=== PATIENT | female | born 1940 | race Caucasian/White ===

== ENCOUNTER → 2017-12-24 | Outpatient (CLI) | payer OTHER, MEDICARE ==
[~2017-12-24] MED LIST: ASPIRIN EC81 M1 PO; AUGMENTIN 500-1 EACH; AUGMENTIN 500-1 EACH PO; CIPROFLOXACIN500 M1 PO; HYDROCODON-ACE1 EAC7 PO; K-DUR 20 MEQ T20 MEQ; KURVELO1 EACH; LEVOTHYROXIN0.112 M1 PO; PRILOSEC 20 MG20 MG PO; PROTONIX IV40 MG; PROTONIX40 M2 PO; PYRIDIUM200 MG PO; SYNTHROID112 MCG PO; VITAMIN D32000 UNI1 PO; ZOLOFT 50 MG TA50 M1 PO; ZOLOFT25 MG PO
== END ==
LOC: RAD 10:48
DX: Z12.31 Encounter for screening mammogram for malignant neoplasm of breast (principal)

== ENCOUNTER → 2017-12-28 | Outpatient (CLI) | payer OTHER, MEDICARE | LOC: ULTRA 07:26 | DX: N63.20 Unspecified lump in the left breast, unspecified quadrant (principal); N60.02 Solitary cyst of left breast ==

== ENCOUNTER → 2018-08-13 | Outpatient (CLI) | payer OTHER, MEDICARE | LOC: ULTRA 02:06 | DX: N60.02 Solitary cyst of left breast (principal); R92.8 Other abnormal and inconclusive findings on diagnostic imaging of breast ==

== ENCOUNTER → 2019-02-05 | Outpatient (CLI) | payer OTHER, MEDICARE | LOC: ULTRA 02:39 | DX: N60.02 Solitary cyst of left breast (principal) ==

== ENCOUNTER → 2020-04-06 | Outpatient (CLI) | payer OTHER, MEDICARE | LOC: RAD 10:13 | PROVIDERS: ATTEND Internal Medicine | DX: Z12.31 Encounter for screening mammogram for malignant neoplasm of breast (principal) ==

== ENCOUNTER → 2021-01-31 | Outpatient (CLI) | payer OTHER, MEDICARE ==
[~2021-01-31] MED LIST changes: +LEVOTHYROXINE100 MC2 PO; +LIPITOR10 MG PO; +METOPROLOL TART25 MG PO; +NORVASC10 MG PO; +PACERONE200 MG PO; +TYLENOL EXTRA500 MG PO; -VITAMIN D32000 UNI1 PO; +VITAMIN D350 MCG PO; +XARELTO20 MG PO; +ZESTRIL40 MG PO; -ZOLOFT 50 MG TA50 M1 PO; +ZOLOFT 50 MG TA50 MG PO
== END | disposition home or self-care (01) ==
LOC: LAB 08:49
PROVIDERS: Student in an Organized Health Care Education/Training Program; ATTEND Specialist
DX: Z01.812 Encounter for preprocedural laboratory examination (principal); Z20.822 Contact with and (suspected) exposure to COVID-19

== ENCOUNTER → 2021-02-02 | Outpatient (CLI) | payer OTHER, MEDICARE ==
[~2021-02-02] VITALS: Ht 172.7 cm; Wt 89.4 kg
--- NOTE | 2021-02-04 18:06 | PATH ---
[facility] [address] [address] PATHOLOGY RPT PROCEDURE Name: JOHNNIE QUACH Room #: REG [facility] Stevenson.#: [id number] Admission: 02/02/21 Date of : 36 Discharge: Report #: [id number] Path Case #: [id number] [facility] Accession Number: [id number] . 01 Material submitted: . PART A: duodenum - BIOPSY OF DUODENUM PART B: gastrointestinal site - BIOPSY OF GASTRITIS . 01 Clinical history: . PRE-OP DIAGNOSIS: NAUSEA AFTER EATING DTS/EGD FOR A- RULE OUT SPRUE . 02 Diagnosis: A. Small bowel mucosa, duodenum, endoscopic biopsy: - No diagnostic abnormalities present. - Negative for villous blunting or increase in intraepithelial lymphocytes. . B. Gastric mucosa, gastritis, rule out H. pylori, endoscopic biopsy: - Mild reactive gastropathy. - Negative for intestinal metaplasia or atrophy. - Negative for Helicobacter pylori (properly controlled immunohistochemical stain performed). (IUV:pit 02/04/2021) QTP 02/04/2021 1256 Local . 02 Electronically signed: . Maye Suarez MD, Pathologist NPI- [id number] . 01 Gross description: . A. Received in formalin labeled "Johnnie Quach, BX of duodenum rule out sprue" are multiple quiroz-brown soft tissue fragments measuring in aggregate 0.8 x 0.3 x 0.1 cm. The specimen is submitted entirely in A1. . B. Received in formalin labeled "Johnnie Quach, BX of gastritis rule out H. pylori" are 2 quiroz-brown soft tissue fragments measuring in aggregate 0.7 x 0.4 x 0.1 cm. The specimen is submitted entirely in B1. ([facility]; 02/03/2021) [facility] 02/03/2021 1211 Local . 02 Pathologist provided ICD-10: K31.9 . 02 CPT . 267975, [id number], [id number] [address] [address] PATHOLOGY RPT PROCEDURE Name: JOHNNIE QUACH Room #: REG [facility] Chantel#: [id number] Admission: 02/02/21 Date of : 36 Discharge: Report #: [id number] Path Case #: [id number] Specimen Comment: A courtesy copy of this report has been sent to [phone] Performed at: [address] [facility] [address], [place], [place] [id number] MD Pablo Umana MD Phone: [phone] Performed at: [address] [facility] [id number] MD Maye Suarez MD Phone: [phone]
--- NOTE | 2021-02-09 08:06 | O ---
[facility] [place] [address] OPERATIVE REPORT Name: JOHNNIE AMEZQUITA [id number] Admission: 02/02/21 Attend Phys: Ab García Discharge: Date of : 36 Report #: [id number] THIS REPORT FOR: cc: Physician not on staff Physician not on staff Ab Madrid MD ~ DOC #: [id number] cc: DO Ab Cheek MD DATE OF SERVICE: 02/02/2021 PROCEDURE: Upper endoscopy with biopsies. HISTORY OF PRESENT ILLNESS: The patient is an 80-year-old female who reports nausea, especially after eating, early satiety. She has a history of gastroesophageal reflux disease, previously with dysphagia and underwent upper endoscopy by myself with dilation in 2016. Hiatal hernia was noted at that time. She denies any dysphagia at this time. She is on pantoprazole 40 mg on a daily basis. Plan is for upper endoscopy. DESCRIPTION OF PROCEDURE: The risks and benefits of the procedure were explained to the patient, those risks including but not limited to bleeding, perforation and the risk of sedation. She understood these risks and gave informed consent. Sedation was given using propofol per anesthesia. Next, using a standard Olympus upper endoscope, the scope was placed in the patient's mouth and advanced under direct vision through the esophagus, stomach and into the second portion of the duodenum. The larynx was normal in appearance. The esophagus was normal throughout. The GE junction was normal. Upon entering the stomach, a medium to large size hiatal hernia was noted. Overall, the gastric mucosa was normal. Biopsies were obtained to rule out H. pylori. The pylorus was normal and patent. The duodenal bulb, first and second portion were all normal. Random biopsies were obtained to rule out the possibility of celiac sprue. The scope was then withdrawn and the procedure terminated. The patient tolerated the procedure well. IMPRESSION: 1. Medium to large size hiatal hernia. 2. Otherwise, normal upper endoscopy. RECOMMENDATIONS: 1. Await biopsy results. 2. Continue PPI therapy. 3. We will add Zofran on a p.r.n. basis. 4. We discussed if biopsies are negative, possibly proceeding with a gastric emptying study. [address] [address] OPERATIVE REPORT Name: ALIRIOJOHNNIE L [id number] Admission: 02/02/21 Attend Phys: Ab García Discharge: Date of : 36 Report #: [id number] 5. Also, need to consider the possibility of a hiatal hernia was playing a role in her symptoms. Thank you for allowing me to participate in her care. Ab Madrid MD CCM/DEACON/NARINDER <ELECTRONICALLY SIGNED> By: Ab Madrid MD 02/09/21 0806 1131 1358 Ab Madrid MD /nt
== END | disposition home or self-care (01) ==
LOC: GI 08:44
PROVIDERS: ATTEND Specialist
DX: R11.0 Nausea (principal); K31.9 Disease of stomach and duodenum, unspecified; K44.9 Diaphragmatic hernia without obstruction or gangrene; I10 Essential (primary) hypertension; I48.91 Unspecified atrial fibrillation; E78.00 Pure hypercholesterolemia, unspecified; J43.9 Emphysema, unspecified; K21.9 Gastro-esophageal reflux disease without esophagitis; F32.9 Major depressive disorder, single episode, unspecified; Z98.890 Other specified postprocedural states; Z79.899 Other long term (current) drug therapy; Z98.51 Tubal ligation status; Z90.49 Acquired absence of other specified parts of digestive tract; Z88.8 Allergy status to other drugs, medicaments and biological substances
CPT/HCPCS: 62110; 62900

== ENCOUNTER → 2021-03-02 | Outpatient (CLI) | payer OTHER, MEDICARE | LOC: NUC 09:03 | PROVIDERS: ATTEND Specialist | DX: R68.81 Early satiety (principal); R11.0 Nausea ==

== ENCOUNTER → 2021-04-20 | Outpatient (CLI) | payer OTHER, MEDICARE | LOC: SJCVC 12:04 | PROVIDERS: ATTEND Internal Medicine Cardiovascular Disease | DX: R94.31 Abnormal electrocardiogram [ECG] [EKG] (principal); R06.02 Shortness of breath; E78.00 Pure hypercholesterolemia, unspecified; R53.83 Other fatigue; R68.89 Other general symptoms and signs; D68.59 Other primary thrombophilia; I48.0 Paroxysmal atrial fibrillation; I49.5 Sick sinus syndrome; J44.9 Chronic obstructive pulmonary disease, unspecified; G47.33 Obstructive sleep apnea (adult) (pediatric); K21.9 Gastro-esophageal reflux disease without esophagitis; I12.9 Hypertensive chronic kidney disease with stage 1 through stage 4 chronic kidney disease, or unspecified chronic kidney disease; N18.9 Chronic kidney disease, unspecified; E78.5 Hyperlipidemia, unspecified; M81.0 Age-related osteoporosis without current pathological fracture; E55.9 Vitamin D deficiency, unspecified; F10.10 Alcohol abuse, uncomplicated; Z95.0 Presence of cardiac pacemaker; Z90.49 Acquired absence of other specified parts of digestive tract; Z79.899 Other long term (current) drug therapy; Z82.49 Family history of ischemic heart disease and other diseases of the circulatory system ==

== ENCOUNTER → 2021-05-09 | Outpatient (CLI) | payer OTHER, MEDICARE | LOC: BC 12:57 → PAIN 14:09 | PROVIDERS: ATTEND Family Medicine | DX: Z12.31 Encounter for screening mammogram for malignant neoplasm of breast (principal); N64.89 Other specified disorders of breast ==

== ENCOUNTER → 2021-05-12 | Outpatient (CLI) | payer OTHER, MEDICARE | LOC: SJCVCIMAG 08:00 | PROVIDERS: ATTEND Internal Medicine Cardiovascular Disease | DX: I08.2 Rheumatic disorders of both aortic and tricuspid valves (principal); R07.89 Other chest pain; R53.83 Other fatigue; I27.20 Pulmonary hypertension, unspecified; I48.91 Unspecified atrial fibrillation; E78.00 Pure hypercholesterolemia, unspecified; D68.59 Other primary thrombophilia; R06.02 Shortness of breath; E03.9 Hypothyroidism, unspecified; J44.9 Chronic obstructive pulmonary disease, unspecified; G47.33 Obstructive sleep apnea (adult) (pediatric); I13.10 Hypertensive heart and chronic kidney disease without heart failure, with stage 1 through stage 4 chronic kidney disease, or unspecified chronic kidney disease; N18.9 Chronic kidney disease, unspecified; K21.9 Gastro-esophageal reflux disease without esophagitis; E78.5 Hyperlipidemia, unspecified; M81.0 Age-related osteoporosis without current pathological fracture; E55.9 Vitamin D deficiency, unspecified; Z95.0 Presence of cardiac pacemaker; Z90.49 Acquired absence of other specified parts of digestive tract; Z79.899 Other long term (current) drug therapy; Z82.49 Family history of ischemic heart disease and other diseases of the circulatory system ==

== ENCOUNTER → 2021-09-15 | Outpatient (CLI) | payer OTHER, MEDICARE | LOC: SJCVC 10:54 | PROVIDERS: ATTEND Internal Medicine Cardiovascular Disease | DX: R94.31 Abnormal electrocardiogram [ECG] [EKG] (principal); I25.2 Old myocardial infarction; I45.9 Conduction disorder, unspecified; I48.91 Unspecified atrial fibrillation; R06.02 Shortness of breath; D68.59 Other primary thrombophilia; I38 Endocarditis, valve unspecified; E78.00 Pure hypercholesterolemia, unspecified; I27.20 Pulmonary hypertension, unspecified; I12.9 Hypertensive chronic kidney disease with stage 1 through stage 4 chronic kidney disease, or unspecified chronic kidney disease; N18.9 Chronic kidney disease, unspecified; K21.9 Gastro-esophageal reflux disease without esophagitis; F32.9 Major depressive disorder, single episode, unspecified; E78.5 Hyperlipidemia, unspecified; Z79.899 Other long term (current) drug therapy; Z72.89 Other problems related to lifestyle; Z82.49 Family history of ischemic heart disease and other diseases of the circulatory system ==